=== PATIENT | male | born 1995 | race Caucasian/White ===

== ENCOUNTER 2020-07-27 07:59 | Inpatient (IN) | payer OTHER ==
[~2020-07-27] VITALS: Ht 188 cm; Wt 118.0 kg
[2020-07-27] MEDS ORDERED: SODIUM CHLORIDE FLUSH 10ML SYR IVF ONE (09:00)
[2020-07-27] MEDS ORDERED: SODIUM CHLORIDE 0.9% 1,000ML IVBOLUS ONE (09:00)
[2020-07-27] MEDS ORDERED: MORPHINE SULFATE 4 MG/ML, 1ML IVPush PRN (09:00)
[2020-07-27] MEDS ORDERED: ONDANSETRON 2MG/ML, 2ML IVPush ONE (09:00)
[2020-07-27 09:13] LABS: BASOPHILS % (AUTO) 1 % (0-1); EOSINOPHILS % (AUTO) 0 % (1-7); LYMPHOCYTES % (AUTO) 15 % (22-44); MEAN CORPUSCULAR HEMOGLOBIN 30.8 pg (27.5-34.5); MEAN CORPUSCULAR HGB CONC 34.9 g/dL (33.2-36.2); MEAN PLATELET VOLUME 8.9 fL (7.4-10.4); MONOCYTES % (AUTO) 10 % (2-9); NEUTROPHILS % (AUTO) 75 % (42-75); PLATELET COUNT 204 x10^3/uL (130-400); RED BLOOD COUNT 5.31 x10^6/uL (4.38-5.82); RED CELL DISTRIBUTION WIDTH 13.2 % (9.4-14.8)
--- NOTE | 2020-07-27 09:14 | NUR ---
Pt ambulatory to bathroom with steady gait.
[2020-07-27 09:15] LABS: MD NO
[2020-07-27] MEDS ORDERED: ONDANSETRON 2MG/ML, 2ML ONE ×2 (09:21→09:59)
[2020-07-27] MEDS ORDERED: MORPHINE SULFATE 4 MG/ML, 1ML ONE ×2 (09:21→10:00)
[2020-07-27 09:22] LABS: ALANINE AMINOTRANSFERASE 61 U/L (12-78); ALBUMIN 4.1 g/dL (3.4-5.0); ANION GAP 9 mmol/L (5-15); CALCIUM 9.3 mg/dL (8.5-10.1); CHLORIDE 108 mmol/L (98-107); CREATININE 0.93 mg/dL (0.7-1.3)
[2020-07-27 09:24] LABS: ALKALINE PHOSPHATASE 59 U/L (45-117); BILIRUBIN,TOTAL 1.1 mg/dL (0.2-1.0); TOTAL PROTEIN 7.9 g/dL (6.4-8.2)
--- NOTE | 2020-07-27 09:31 | NUR ---
Pt to imaging.
--- NOTE | 2020-07-27 09:33 | NUR ---
Pt was "able to poop a little bit and I'm hoping it's the start of something big, so I don't want morphine because it will make me constipated." Pt also denied nausea meds. MD Menendez made aware.
[2020-07-27] MEDS ORDERED: OMNIPAQUE 350 MG/ML, 100ML BOTTLE ONE (09:40)
[2020-07-27 09:50] LABS: MICROSCOPIC INDICATED
--- NOTE | 2020-07-27 09:58 | NUR ---
TASK RN: DR HERRERA AT BEDSIDE. TEST RESULTS AND PLAN FOR ADMIT DISCUSSED AND QUESTIONS ANSWERED.
--- NOTE | 2020-07-27 10:04 | NUR ---
TASK RN: PT MED FOR PAIN NOTED. SBAR RPT TO FREDDIE COWART
[2020-07-27] MEDS ORDERED: METRONIDAZOLE PMX 500MG/100ML 100 ML ONE (10:55)
[2020-07-27] MEDS: METRONIDAZOLE PMX 500MG/100ML 100 ML IV SCH ×2 (11:00→19:27)
[2020-07-27] MEDS ORDERED: CEFOTETAN PMX 2GM/50ML 50 ML IVPB ONE (11:00)
[2020-07-27] MEDS ORDERED: ONDANSETRON 2MG/ML, 2ML IVPush PRN (11:00)
[2020-07-27] MEDS ORDERED: TEMAZEPAM 15 MG CAPSULE PO PRN (11:00)
[2020-07-27] MEDS ORDERED: ACETAMINOPHEN 325 MG TABLET PO PRN (11:00)
[2020-07-27] MEDS ORDERED: NS + 20MEQ KCL 1,000 ML IV ONE (11:54)
[2020-07-27] MEDS: CEFOTETAN PMX 2GM/50ML 50 ML IV SCH (12:00)
[2020-07-27] MEDS: NS + 20MEQ KCL 1,000 ML IV SCH (12:00)
[2020-07-27] MEDS ORDERED: METRONIDAZOLE PMX 500MG/100ML 100 ML IV ONE (12:00)
--- NOTE | 2020-07-27 12:06 | NUR ---
BREAK RN: PT AMBULATED TO BATHROOM, UPRIGHT STEADY GAIT. RTD TO ROOM W/O INCIDENT. IVF AND ANTIBIOTICS STARTED NOTED AND INFUSING W/O DIFFICULTY. RAPID COVID SAMPLE COLLECTED. DR DE ANDA AT BEDSIDE.
[2020-07-27] MEDS ORDERED: HYDROcodone/APAP 5/325 TABLET ONE (12:11)
[2020-07-27] MEDS: HYDROcodone/APAP 5/325 TABLET PO PRN ×2 (12:12→17:12)
--- NOTE | 2020-07-27 12:12 | NUR ---
BREAK RN: DR DE ANDA TO WRITE ORDER FOR PT TO HAVE SIPS OF CLEAR LIQUIDS WITH PO MEDS. PT MED NOTED FOR PAIN WITH NORCO NOTED.
--- NOTE | 2020-07-27 12:13 | NUR ---
BREAK RN: ROSEANN RPT TO FREDDIE COWART
--- NOTE | 2020-07-27 12:23 | NUR ---
Pt with visitor at bedside. All needs met at this time.
--- NOTE | 2020-07-27 13:50 | NUR ---
First attempt to call report.
--- NOTE | 2020-07-27 13:58 | NUR ---
Report to Salud, floor RN.
[2020-07-27] MEDS ORDERED: METH36TA4 PO (15:00)
[2020-07-27 15:12] VITALS: BP 126/78
[2020-07-27 18:47] VITALS: BP 118/74
[2020-07-27] MEDS: KETOROLAC 30 MG/1 ML IV PRN (20:47)
[2020-07-28 02:08] VITALS: BP 119/85
[2020-07-28] MEDS: METRONIDAZOLE PMX 500MG/100ML 100 ML IV SCH ×3 (03:18→19:50)
[2020-07-28 05:11] LABS: BASOPHILS % (AUTO) 1 % (0-1); EOSINOPHILS % (AUTO) 2 % (1-7); LYMPHOCYTES % (AUTO) 25 % (22-44); MEAN CORPUSCULAR HEMOGLOBIN 30.7 pg (27.5-34.5); MEAN CORPUSCULAR HGB CONC 34.4 g/dL (33.2-36.2); MEAN PLATELET VOLUME 8.5 fL (7.4-10.4); MONOCYTES % (AUTO) 10 % (2-9); NEUTROPHILS % (AUTO) 63 % (42-75); PLATELET COUNT 170 x10^3/uL (130-400); RED BLOOD COUNT 4.67 x10^6/uL (4.38-5.82); RED CELL DISTRIBUTION WIDTH 13.2 % (9.4-14.8)
[2020-07-28 05:13] LABS: MD NO
[2020-07-28 05:18] LABS: ALBUMIN 3.3 g/dL (3.4-5.0); ANION GAP 8 mmol/L (5-15); CALCIUM 8.7 mg/dL (8.5-10.1); CHLORIDE 108 mmol/L (98-107)
[2020-07-28 05:23] LABS: ALANINE AMINOTRANSFERASE 42 U/L (12-78); ALKALINE PHOSPHATASE 49 U/L (45-117); CREATININE 1.17 mg/dL (0.7-1.3); TOTAL PROTEIN 6.7 g/dL (6.4-8.2)
[2020-07-28 07:45] VITALS: BP 114/67
[2020-07-28] MEDS: KETOROLAC 30 MG/1 ML IV PRN ×2 (08:14→22:02)
[2020-07-28] MEDS: HYDROcodone/APAP 5/325 TABLET PO PRN ×2 (08:15→17:47)
[2020-07-28] MEDS: CEFOTETAN PMX 2GM/50ML 50 ML IV SCH ×3 (11:14→23:26)
[2020-07-28] MEDS: NS + 20MEQ KCL 1,000 ML IV SCH ×3 (12:50→23:26)
[2020-07-28] MEDS: MAGNESIUM HYDROXIDE 8%, 30ML UDC PO SCH (12:50)
[2020-07-28 15:07] VITALS: BP 129/70
[2020-07-28 17:03] VITALS: BP 119/80
[2020-07-28 19:41] VITALS: BP 141/93
[2020-07-29 02:26] VITALS: BP 101/62
[2020-07-29] MEDS: METRONIDAZOLE PMX 500MG/100ML 100 ML IV SCH ×3 (03:38→20:51)
[2020-07-29 07:05] VITALS: BP 111/69
[2020-07-29] MEDS: MAGNESIUM HYDROXIDE 8%, 30ML UDC PO SCH (08:48)
[2020-07-29] MEDS: NS + 20MEQ KCL 1,000 ML IV SCH ×2 (11:24→20:51)
[2020-07-29] MEDS: CEFOTETAN PMX 2GM/50ML 50 ML IV SCH ×2 (11:44→23:08)
[2020-07-29 12:28] VITALS: BP 108/69
[2020-07-29 19:03] VITALS: BP 139/84
[2020-07-30 01:37] VITALS: BP 107/70
[2020-07-30] MEDS: METRONIDAZOLE PMX 500MG/100ML 100 ML IV SCH ×2 (03:44→12:53)
[2020-07-30 08:00] VITALS: BP 107/70
[2020-07-30] MEDS ORDERED: OMNIPAQUE 350 MG/ML, 100ML BOTTLE ONE (09:09)
[2020-07-30] MEDS: MAGNESIUM HYDROXIDE 8%, 30ML UDC PO SCH (09:22)
[2020-07-30] MEDS: NS + 20MEQ KCL 1,000 ML IV SCH (09:22)
[2020-07-30] MEDS: CEFOTETAN PMX 2GM/50ML 50 ML IV SCH (11:39)
[2020-07-30] MEDS ORDERED: AMOX1TAB64 PO (12:46)
== END 2020-07-30 14:10 | disposition home or self-care (01) | DRG 379 ==
LOC: ED 08:22 → SUATTDRO 10:46 → EDIP 10:49 → 3WST 14:27 → 4NE 17:55 → 3N 07-28 16:31 → DCLOUNGE 07-30 14:04
PROVIDERS: ADMIT Internal Medicine; ATTEND Internal Medicine
DX: K57.21 Diverticulitis of large intestine with perforation and abscess with bleeding (principal); F17.210 Nicotine dependence, cigarettes, uncomplicated; F12.90 Cannabis use, unspecified, uncomplicated; Z20.822 Contact with and (suspected) exposure to COVID-19
CPT/HCPCS: 36415; 74177; 80053; 81001; 83690; 85025; 87635; 96365; 96375; 99285; G0378; J1885; J2405; J3480; Q9967; J2270; J7030

== ENCOUNTER 2020-12-02 10:39 | Emergency (ER) | payer OTHER ==
[~2020-12-02] VITALS: Ht 188 cm; Wt 112.8 kg
[~2020-12-02 10:39] MED LIST: AMOX1TAB64 PO; METH36TA4 PO
--- NOTE | 2020-12-02 10:54 | NUR ---
PATIENT WALKED BACK FROM TRIAGE WITH CHIEF C/O LLQ PAIN XFEW DAYS. PATIENT WAS CONSTIPATED YESTERDAY AND TOOK LAXATIVE, WAS ABLE TO HAVE A BM, BUT PAIN DID NOT SUBSIDE. PATIENT DENIES N/V/D, NO FEVER. PATIENT STATES "I THINK I'M HAVING AN ATTACK OF DIVERTICULITIS." CONNECTED TO MONITOR, VSS, CALL LIGHT WITHIN REACH.
--- NOTE | 2020-12-02 11:13 | NUR ---
ERMD AT BEDSIDE FOR EVALUATION.
[2020-12-02] MEDS ORDERED: METRONIDAZOLE PMX 500MG/100ML 100 ML IV ONE (11:30)
[2020-12-02] MEDS ORDERED: AMPICILLIN/SULBACTAM 3 GM in SODIUM CHLORIDE 0.9% 100 ML IV ONE (11:30)
[2020-12-02] MEDS ORDERED: METRONIDAZOLE PMX 500MG/100ML 100 ML ONE (11:32)
--- NOTE | 2020-12-02 11:43 | NUR ---
20 GAUGE IV STARTED RIGHT AC, BLOOD COLLECTED AND GIVEN TO PIGMENT PRESSER. WADE JONES, EDUCATED PATIENT ABOUT NEED FOR URINE SAMPLE.
[2020-12-02 11:51] LABS: BASOPHILS % (AUTO) 1 % (0-1); EOSINOPHILS % (AUTO) 1 % (1-7); LYMPHOCYTES % (AUTO) 17 % (22-44); MEAN CORPUSCULAR HEMOGLOBIN 30.9 pg (27.5-34.5); MEAN CORPUSCULAR HGB CONC 35.1 g/dL (33.2-36.2); MEAN PLATELET VOLUME 8.9 fL (7.4-10.4); MONOCYTES % (AUTO) 12 % (2-9); NEUTROPHILS % (AUTO) 71 % (42-75); PLATELET COUNT 194 x10^3/uL (130-400); RED BLOOD COUNT 5.21 x10^6/uL (4.38-5.82); RED CELL DISTRIBUTION WIDTH 13.2 % (9.4-14.8)
[2020-12-02 11:56] LABS: ANION GAP 10 mmol/L (5-15); CALCIUM 9.4 mg/dL (8.5-10.1); CHLORIDE 106 mmol/L (98-107); CREATININE 0.84 mg/dL (0.7-1.3)
[2020-12-02 12:30] VITALS: BP 121/77
--- NOTE | 2020-12-02 12:36 | NUR ---
IV removed with tip intact. Patient given discharge instructions and prescriptions and they have confirmed that they understand the instructions. Patient ambulatory with steady gait. NAD, all questions answered appropriately, denies additional needs at this time. No personal belongings left in room after discharge.
== END 2020-12-02 12:37 | disposition home or self-care (01) ==
LOC: ED 12:31
DX: R10.32 Left lower quadrant pain (principal)
CPT/HCPCS: 36415; 80048; 82040; 85025; 96365; 96368; 99284; J0295